=== PATIENT | male | born 1980 | race African-American/Black ===

== ENCOUNTER 2018-02-03 15:11 | Emergency (ER) | payer MEDICAID ==
[2018-02-03] MEDS ORDERED: ALBUTEROL INH PREPACK MDI TAKEHOME ONE (15:21)
--- NOTE | 2018-02-03 15:23 | EDPHY ---
H & P Time Seen by Provider: 02/03/18 15:19 HPI/ROS: CHIEF COMPLAINT: Shortness of breath HISTORY OF PRESENT ILLNESS: The patient is a 37-year-old man who comes to the emergency department from the homeless [facility] complaining of shortness of breath. He has a history of asthma and ran out of his albuterol. He also has a history of schizophrenia. He was given a neb in route via EMS and now feels completely better. He denies cough or fever. He denies sore throat runny nose etc. He is asking for refill of his albuterol. Severity: Moderate Modifying factors: Resolved with treatment REVIEW OF SYSTEMS: Constitutional: denies: chills, fever, recent illness, recent injury EENTM: denies: blurred vision, double vision, nose congestion Respiratory: See HPI Cardiac: denies: chest pain, irregular heart rate, lightheadedness, palpitations Gastrointestinal/Abdominal: denies: abdominal pain, diarrhea, nausea, vomiting, blood streaked stools Genitourinary: denies: dysuria, frequency, hematuria, pain Musculoskeletal: denies: joint pain, muscle pain Skin: denies: lesions, rash, jaundice, bruising Neurological: denies: headache, numbness, paresthesia, tingling, dizziness, weakness Hematologic/Lymphatic: denies: blood clots, easy bleeding, easy bruising Immunologic/allergic: denies: HIV/AIDS, transplant 10 systems reviewed and negative except as noted EXAM: GENERAL: Well-appearing, well-nourished and in no acute distress. HEAD: Atraumatic, normocephalic. EYES: Pupils equal round and reactive to light, extraocular movements intact, sclera anicteric, conjunctiva are normal. ENT: TMs normal, nares patent, oropharynx clear without exudates. Moist mucous membranes. NECK: Normal range of motion, supple without lymphadenopathy or JVD. LUNGS: Breath sounds clear to auscultation bilaterally and equal. No wheezes rales or rhonchi. HEART: Regular rate and rhythm without murmurs, rubs or gallops. ABDOMEN: Soft, nontender, normoactive bowel sounds. No guarding, no rebound. No masses appreciated. BACK: No CVA tenderness, no spinal tenderness, step-offs or deformities EXTREMITIES: Normal range of motion, no pitting or edema. No clubbing or cyanosis. NEUROLOGICAL: Cranial nerves II through XII grossly intact. Normal speech, normal gait. 5/5 strength, normal movement in all extremities, normal sensation , normal reflexes PSYCH: Normal mood, normal affect. SKIN: Warm, dry, normal turgor, no visible rashes or lesions. Source: Patient, EMS Exam Limitations: No limitations - Medical/Surgical History Hx Asthma: Yes Hx Chronic Respiratory Disease: No Hx Diabetes: No Hx Cardiac Disease: No Hx Renal Disease: No Hx Cirrhosis: No Hx Alcoholism: No Hx HIV/AIDS: No Hx Splenectomy or Spleen Trauma: No Other PMH: schizophrenia - Family History Significant Family History: No pertinent family hx - Social History Smoking Status: Never smoked Alcohol Use: None Drug Use: Marijuana Constitutional: Initial Vital Signs Temperature (C) 36.8 C 02/03/18 15:28 Heart Rate 94 02/03/18 15:28 Respiratory Rate 18 02/03/18 15:28 Blood Pressure 138/79 H 02/03/18 15:28 O2 Sat (%) 95 02/03/18 15:28 O2 Delivery Mode Room Air Allergies/Adverse Reactions: No Known Allergies Allergy (Unverified 02/03/18 15:27) Home Medications: Medication Instructions Recorded Elavil 02/03/18 Medical Decision Making ED Course/Re-evaluation: The patient has no complaints after receiving albuterol. He is asking for albuterol to take with him. I will give him a the MDI which she is used to using. He is happy with this and declines further workup or testing. We discussed indications for returning. Differential Diagnosis: Partial list of the Differential diagnosis considered include but were not limited to; asthma exacerbation, bronchitis and although unlikely based on the history and physical exam, I also considered pneumonia, pneumothorax, acute coronary disease. I discussed these differential diagnoses and the plan with the patient as well as the usual and expected course. The patient understands that the diagnosis is provisional and that in medicine we are not always correct and that further workup is often warranted. Usual and customary warnings were given. All of the patient's questions were answered. The patient was instructed to return to the emergency department should the symptoms at all worsen or return, otherwise to followup with the physician as we discussed. - Data Points Medications Given: Discontinued Medications Albuterol Sulfate (Proventil Inh Prepack) 1 mdi PAT FISHER ONE Stop: 02/03/18 15:22 Last Admin: 02/03/18 15:32 Dose: 1 mdi Departure - Departure Disposition: Home, Routine, Self-Care Clinical Impression: Exacerbation of asthma Qualifiers: Asthma severity: moderate Asthma persistence: unspecified Qualified Code(s): J45.901 - Unspecified asthma with (acute) exacerbation Condition: Fair Instructions: Albuterol (By breathing), Asthma (DC) Referrals: Patient,NotPresent [Unknown] - As per Instructions [facility],. [Clinic] - As per Instructions
[2018-02-03 15:30] VITALS: BP 138/79
--- NOTE | 2018-02-03 17:18 | ASMTCMCOM ---
CM Note CM Note Notes: Pt presented to the ED via EMS for shortness of breath and cough. Pt has a history of asthma and ran out of his albuterol. Pt has been staying [facility] the [facility] [place] [facility]. Pt states he has been unable to fill his Rxn for Albuterol inhaler. Pt is followed at [facility]. This CM called and left a voicemail for RANJEET Hopkins [employer] Furnace Tender at [facility] re:pt getting a following up appt. Pt was provided an albuterol inhaler from the ED. Pt has a history of depression and schizophrenia. Pt is from [place] but moved out here for a girlfriend. Pt recently got a DUI and is on probation. Pt wants to return to [place] where his 10-yr-old son is. Pt reports that his son has recently experience a traumatic life event and he wants to get back there [facility]. Pt states he has been depressed, anxious about his son, and "is just trying to do everything the right way." Pt states he sometimes feels like he can't even think or function due to his depression and anxiety. Pt became tearful throughout the conversation. Since pt is open w/[facility], this CM recommended he go to their [facility] after being d/c'd from the ED. Pt agreeable to this plan and wants to talk to someone. Pt provided a cab voucher to the [facility]'s [facility]. CM to follow-up on Monday. Date Signed: 02/03/2018 05:17 PM Electronically Signed By:Sandra Melgar RN
--- NOTE | 2018-02-07 10:44 | ASMTCMCOM ---
CM Note CM Note Notes: Followed up w/RANJEET Hopkins Online Advertising Director at the [facility] at the [facility] and she states pt has an appt scheduled for later today. CM available for further assistance if needed. Date Signed: 02/07/2018 10:44 AM Electronically Signed By:Sandra Melgar RN
== END 2018-02-03 15:42 | disposition home or self-care (01) ==
DX: J45.901 Unspecified asthma with (acute) exacerbation (principal); F20.9 Schizophrenia, unspecified; Z59.0 Homelessness